=== PATIENT | female | born 1970 | race Caucasian/White ===

== ENCOUNTER 2020-09-15 12:46 | Day surgery (SDC) | payer BC ==
[2020-09-15 13:32] VITALS: RESP 16; TEMP 98
[2020-09-15 14:53] VITALS: BP 116/73; PULSE 98
--- NOTE | 2020-09-15 16:02 | US ---
EXAMINATION TYPE: US FNA thyroid first lesion DATE OF EXAM: 09/15/2020 COMPARISON: NONE HISTORY: Thyroid nodule right Maximal barrier technique was utilized. After informed consent, skin overlying the right lobe thyroi d nodule ultrasound and the overlying skin prepped and draped. Ultrasound was utilized using sterile technique. Lidocaine was used for local anesthesia. Five passes with a 25-gauge needle were made int o the nodule and aspirated specimen was submitted to cytology. Following the procedure hemostasis ac hieved. No immediate complication. The patient discharged in stable condition. After discussion with the patient about the left-sided nodule, lesion is TR 3, follow-up recommended in one year. Patient deferred biopsy at this time. IMPRESSION: STATUS POST ULTRASOUND GUIDED FINE NEEDLE ASPIRATION OF RIGHT THYROID NODULE, PATHOLOGY I S PENDING. THIS PROCEDURE WAS PERFORMED BY THE UNDERSIGNED.
== END 2020-09-15 14:45 | disposition home or self-care (01) ==
LOC: RADPROMAIN 12:46
PROVIDERS: ATTEND Family Medicine
DX: E07.89 Other specified disorders of thyroid (principal)
CPT/HCPCS: 10005; 88173; 88305

== ENCOUNTER → 2021-05-18 | Outpatient (CLI) | payer BC ==
--- NOTE | 2021-05-19 12:28 | NM ---
EXAMINATION TYPE: NM thyroid image w uptake DATE OF EXAM: 05/19/2021 COMPARISON: NONE HISTORY: Thyrotoxicosis. Weight changes, difficulty swallowing TECHNIQUE: Thyroid iodine uptake is calculated and images performed after the oral administration of 305 uCi 1-123 Capsule. FINDINGS: There is homogenous distribution of activity throughout the gland. The 4 hour iodine uptak e is calculated at 9.7% (normal range 8-14%). The 24-hour iodine uptake is calculated at 23% (normal range 15-35%). IMPRESSION: Normal thyroid scan and uptake.
== END | disposition home or self-care (01) ==
LOC: RADNMMAIN 08:30
PROVIDERS: ATTEND Internal Medicine Endocrinology, Diabetes & Metabolism
DX: E05.90 Thyrotoxicosis, unspecified without thyrotoxic crisis or storm (principal); R63.4 Abnormal weight loss; R13.10 Dysphagia, unspecified
CPT/HCPCS: 78014; A9516

== ENCOUNTER → 2022-04-17 | Outpatient (CLI) | payer BC ==
--- NOTE | 2022-04-17 13:41 | XR ---
Lumbosacral spine HISTORY: Low back pain with sciatica 5 views of lumbosacral spine There is spondylosis greatest at L4-5. There is no evident spondylolysis or spondylolisthesis. There is a mild spinal curvature. Sclerosis of the right sacroiliac joint could be due to stress changes. L oss of disc height is greatest at L4-5, L5-S1, associated vacuum phenomenon. Sclerosis in the posteri or elements of the lumbar spine at the lower aspect consistent with facet arthropathy. Lumbar vertebr al bodies show preserved height and bone mineralization. IMPRESSION: Degenerative disc disease, facet arthropathy, mild spinal curvature.
== END | disposition home or self-care (01) ==
LOC: RADXRYALE 10:18
PROVIDERS: ATTEND Physician Assistant Medical
DX: M51.37 Other intervertebral disc degeneration, lumbosacral region (principal); M47.816 Spondylosis without myelopathy or radiculopathy, lumbar region; M43.8X6 Other specified deforming dorsopathies, lumbar region
CPT/HCPCS: 72110

== ENCOUNTER → 2022-06-02 | Outpatient (CLI) | payer BC ==
--- NOTE | 2022-06-03 02:13 | MR ---
EXAMINATION TYPE: MR lumbar spine wo con DATE OF EXAM: 06/02/2022 COMPARISON: None HISTORY: Lower back pain, left leg numbness. Multiplanar multiecho imaging of the lumbar spine with no contrast. Normal alignment. There is moderate narrowing of L4-5 disc some spurring of the endplates. There is m inimal posterior disc bulging at L4-4 and L4-5. The neural foramina are fairly well-maintained. There is some mild narrowing on the left side L4-5 neural foramen due to disc space narrowing and facet ar thropathy. No focal bone destruction. No compression fracture. There is no lumbar paraspinal mass. Th e sacroiliac joints are intact. IMPRESSION: Spondylotic changes with disc space narrowing at L4-5 and L5-S1. Minimal posterior disc bulging at L3 -4 and L4-5. No spinal stenosis. Mild left-sided L4-5 neural foraminal narrowing.
== END | disposition home or self-care (01) ==
LOC: RADMRIMAIN 20:30
PROVIDERS: ATTEND Family Medicine
DX: M51.36 Other intervertebral disc degeneration, lumbar region (principal)
CPT/HCPCS: 72148

== ENCOUNTER → 2024-08-18 | Outpatient (CLI) | payer BC ==
--- NOTE | 2024-08-18 13:48 | MM ---
Reason for Exam: Screening (asymptomatic). Last screening mammogram was performed 12 month(s) ago. Patient History: Menarche at age 14. First Full-Term at age 30. Hysterectomy at age 44. Patient has history of breast feeding. Risk Values: Marilyn 5 year model risk: 1.2%. NCI Lifetime model risk: 9.6%. Prior Study Comparison: 05/30/2019 Bilateral Screening Mammogram, Unknown. 08/15/2023 Bilateral MG 3D screening mammo w/cad, [facility]. 08/21/2023 Right MG 3D work up w/cad RT, [facility]. Tissue Density: The breasts are heterogeneously dense, which may obscure small masses. Findings: Analyzed By CAD. Right breast: There is no suspicious group of microcalcifications or new suspicious mass. Left breast: There is no suspicious group of microcalcifications or new suspicious mass. Overall Assessment: Negative, BI-RAD 1 Management: Screening Mammogram of both breasts in [address] [facility] will attempt to contact patient to return for supplemental views and ultrasound if indicated. Patient should continue monthly self-breast exams. A clinical breast exam by your physician is recommended on an annual basis. This exam should not preclude additional follow-up of suspicious palpable abnormalities. Note on Marilyn scores and lifetime risk: 1. A Marilyn score greater than 3% is considered moderate risk. If this is the case, consider specialist referral to assess eligibility for a risk reducing agent. 2. If overall lifetime risk for the development of breast cancer is 20% or higher, the patient may qualify for future screening with alternating mammogram and breast MRI. [facility], , 08/18/2024 1:45 PM. Electronically signed and approved by: Dimitrios Silva DO
== END ==
LOC: RADMAMWWP 11:04
PROVIDERS: ATTEND Family Medicine
CPT/HCPCS: 77063; 77067